=== PATIENT | male | born 1995 | race Hispanic/Latino ===

== ENCOUNTER 2024-08-03 15:46 | Emergency (ER) | payer OTHER ==
[~2024-08-03] VITALS: Ht 182.9 cm; Wt 74.4 kg
[2024-08-03 15:55] VITALS: PULSE 76; RESP 16; TEMP 98.2
[2024-08-03] MEDS: SODIUM CHLORIDE 0.9% 1000ML 1,000 ML IV STA (16:12)
[2024-08-03 16:19] LABS: BASOPHILS % 0.4 % (0.0-1.0); EOSINOPHILS % 0.7 % (0.0-6.0); HEMATOCRIT 43.9 % (38.2-49.6); HEMOGLOBIN 15.3 g/dL (14.0-18.0); LYMPHOCYTES # (AUTO) 1.5 (1.0-3.2); MEAN CORPUSCULAR HGB CONC 34.9 g/dL (31-35); MONOCYTES # (AUTO) 0.7 (0.2-0.8); MONOCYTES % 12.8 % (4.4-11.3); NEUTROPHILS # (AUTO) 3.4 (2.1-6.9); NEUTROPHILS % 59.9 % (38.7-80.0); PLATELET COUNT 213 x10e3/uL (140-360); RED BLOOD COUNT 4.93 x10e6/uL (4.3-5.7); RED CELL DISTRIBUTION WIDTH 12.5 % (11.7-14.4); WHITE BLOOD COUNT 5.69 x10e3/uL (4.8-10.8)
[2024-08-03 16:23] LABS: BILIRUBIN,URINE NEGATIVE (NEGATIVE); CLARITY,URINE CLEAR (CLEAR); COLOR,URINE YELLOW (YELLOW); GLUCOSE, URINE NEGATIVE (NEGATIVE); KETONES,URINE NEGATIVE (NEGATIVE); LEUKOCYTE ESTERASE ,URINE NEGATIVE (NEGATIVE); NITRITE,URINE NEGATIVE (NEGATIVE); PH,URINE 6.5 (5 - 7); PROTEIN,URINE DIPSTICK TRACE (NEGATIVE); URINE UROBILINOGEN 4 mg/dL (0.2 - 1)
[2024-08-03] MEDS ORDERED: IOPAMIDOL 370 MG/ML 100 ML INFUS..BTL INJ ONE (16:33)
[2024-08-03 16:36] LABS: EPITHELIAL CELLS,URINE FEW /LPF; MUCUS,URINE MODERATE; RBC,URINE 0-5 /HPF (0-5); WBC,URINE (MAN) 0-5 /HPF (0-5)
[2024-08-03 16:53] LABS: ALBUMIN/GLOBULIN RATIO 1.1 (0.8-2.0); ANION GAP 13.5 mmol/L (8-16); BILIRUBIN,TOTAL 0.5 mg/dL (0.2-1.2); CALCIUM 9.2 mg/dL (8.4-10.2); CREATININE, SERUM 0.88 mg/dL (0.72-1.25); POTASSIUM 3.5 mmol/L (3.5-5.1); TOTAL PROTEIN 7.6 g/dL (6.5-8.1)
[2024-08-03] MEDS ORDERED: FAMOTIDINE 20 MG/2 ML VIAL IV STA (17:10)
[2024-08-03] MEDS ORDERED: ONDANSETRON HCL INJ 2MG/ML 2ML 2 MG/ML VIAL IV STA (17:10)
[2024-08-03 17:15] VITALS: BP 114/84
[2024-08-03 17:16] VITALS: PULSE 64; RESP 14; O2SAT 100
== END 2024-08-03 17:43 | disposition home or self-care (01) ==
LOC: ER 15:50
DX: R10.30 Lower abdominal pain, unspecified (principal); K59.00 Constipation, unspecified; R11.0 Nausea
CPT/HCPCS: 36415; 74177; 80053; 81001; 83690; 85025; 99284; J2405; J7030; Q9967